=== PATIENT | female | born 1975 | race Hispanic/Latino ===

== ENCOUNTER → 2023-03-03 | Outpatient (CLI) | payer OTHER | END | disposition home or self-care (01) | LOC: RAH 08:00 | PROVIDERS: ATTEND Internal Medicine | DX: K76.0 Fatty (change of) liver, not elsewhere classified (principal); R10.9 Unspecified abdominal pain; E66.3 Overweight; R16.0 Hepatomegaly, not elsewhere classified; Z90.49 Acquired absence of other specified parts of digestive tract | CPT/HCPCS: 76700 ==

== ENCOUNTER 2024-03-02 17:53 | Emergency (ER) | payer OTHER ==
[~2024-03-02] VITALS: Ht 152.4 cm; Wt 68.0 kg
--- NOTE | 2024-03-02 18:01 | ERN ---
ED Note History of Present Illness Stated Complaint: TOE PAIN Chief Complaint: Toe Pain/Injury Time Seen by MD: 17:55 Dictation: PATIENT IS A 48-YEAR-OLD DIABETIC FEMALE HERE WITH MILD TENDERNESS AND ERYTHEMA TO HER LEFT 1ST AND 2ND TOES ONSET SEVERAL DAYS PRIOR TO ARRIVAL. SHE STATES SHE HAS BEEN WEARING SHOES AT WORK AND FOUND OUT TWO DAYS AGO THAT SHE HAD A SMALL RUBBER BALL IN THE SHOE AND HAD NOT NOTICED IT UNTIL TWO DAYS AGO. NO FEVER NO CHILLS NO NAUSEA VOMITING CURRENT BLOOD SUGAR IS 144 ON HER CONTINUOUS MONITOR READING. HAS NOT BEEN TO SEE HER PRIMARY CARE DOCTOR. BLISTERS NOTED TO THE DORSUM OF THE LEFT 2ND TOE. GRANULATED Allergies: Coded Allergies: No Known Allergies (Unverified Allergy, Unknown, 03/02/24) Home Meds Active Scripts Ibuprofen (Ibuprofen 800 mg Tab) 800 Mg Tab, 800 MG PO Q8H PRN for fever or pain, #30 TAB 0 Refills Prov:AMISHA ABRAMS NP 03/02/24 Clindamycin HCl (Clindamycin HCl) 300 Mg Capsule, 1 CAP PO QID for 10 Days, #40 CAP 0 Refills Prov:AMISHA ABRAMS NP 03/02/24 Past Medical History Past Medical History: Diabetes-Type II PSYCH History: no pertinent psych hx History: Not Applicable RN Note Reviewed/Agreed w/PFSH: Yes Review of System Dictation CONSTITUTIONAL: NEGATIVE EXCEPT FOR HPI HEAD/FACE: NEGATIVE EXCEPT FOR HPI EENT: NEGATIVE EXCEPT FOR HPI RESPIRATORY: NEGATIVE EXCEPT FOR HPI GASTROINTESTINAL/ABDOMINAL: NEGATIVE EXCEPT FOR HPI GENITOURINARY: NEGATIVE EXCEPT FOR HPI MUSCULOSKELETAL: NEGATIVE EXCEPT FOR HPI LEFT LEFT 1ST AND 2ND TOE ERYTHEMA TENDERNESS INTEGUMENTARY: NEGATIVE EXCEPT FOR HPI NEUROLOGICAL/PSYCH: NEGATIVE EXCEPT FOR HPI HEMATOLOGIC/LYMPHATIC: NEGATIVE EXCEPT FOR HPI ALL SYSTEMS NEGATIVE, EXCEPT NOTED ABOVE. 13 POINT REVIEW OF SYSTEMS ASSESSED AND ALL NEGATIVE EXCEPT FOR ABOVE. Initial Vital Sign VS Vital Signs Date Time Temp Pulse Resp B/P (MAP) Pulse Ox O2 Delivery O2 Flow Rate FiO2 03/02/24 17:54 97.9 79 16 128/81 98 Room Air 0 03/02/24 18:30 21 Physical Exam Dictation VITAL SIGNS REVIEWED GENERAL APPEARANCE: ALERT, ORIENTED X 3, MILD ACUTE DISTRESS, WELL DEVELOPED, NOURISHED. HEAD AND FACE: NON-TRAUMATIC. EYES: PERRL, PINK CONJUNCTIVAS, EYELID NO TRAUMA, ANTERIOR CHAMBER WITH ARCUS SENILIS. EARS: PINNAS INTACT AND NO SIGNS OF TRAUMA OR ERYTHEMA EAR CANALS CLEAR AND NO DISCHARGE TM NO ERYTHEMA NOSE: NO DISCHARGE, NO BLEEDING. OROPHARYNX: MOUTH NORMAL, TONGUE PINK, PHARYNX CLEAR,NO ERYTHEMA, TONSILS NO EXUDATES, NO ABSCESSES NOTED, MUCOUS MEMBRANE MOIST NECK: SUPPLE, NON-TENDER, NO THYROMEGALY, NO MASSES, NO JVD, NO BRUITS BREAST:DEFERRED CHEST:NO TENDERNESS, NO CREPITUS, NO PARADOXICAL MOVEMENT, NO RETRACTIONS LUNGS:CLEAR, WELL-VENTILATED, SYMMETRIC, NO RALES, NO WHEEZING, NO RHONCHI, NO STRIDOR, GOOD BREATH SOUNDS BILATERALLY HEART: REGULAR RATE, REGULAR RHYTHM, NO MURMUR, NO GALLOPS VASCULAR: NO PERIPHERAL EDEMA, ABDOMEN: SOFT, POSITIVE BOWEL SOUNDS, NONDISTENDED, NO GUARDING, NONTENDER, NO REBOUND, NO MASSES NO HEPATOMEGALY, NO SPLENOMEGALY, NO COWAN'S SIGN, NO HERNIAS. RECTAL: DEFERRED GENITAL: DEFERRED NEUROLOGICAL: NORMAL SPEECH, MOTOR FUNCTION INTACT, SENSORY FUNCTION INTACT MUSCULOSKELETAL: NECK NONTENDER, FULL RANGE OF MOTION, BACK NONTENDER, FULL RANGE OF MOTION, EXTREMITIES: NONTENDER, FULL RANGE OF MOTION SKIN: COLOR PINK, DRY, GRANULATING SECOND-STAGE ULCERS TO DORSUM LEFT TOE BILATERAL TOENAILS INTACT LYMPHATIC: DEFERRED Results (Laboratory/Radiology) Laboratory/Radiology Laboratory Tests Test 03/02/24 18:10 White Blood Count 8.2 K/uL (4.8-10.8) Red Blood Count 4.78 MIL/uL (4.00-5.50) Hemoglobin 13.1 g/dL (12.0-16.0) Hematocrit 39.3 % (36-48) Mean Corpuscular Volume 82.2 fL (79-99) Mean Corpuscular Hemoglobin 27.4 pg (27.0-33.0) Mean Corpuscular Hemoglobin Concent 33.3 g/dL (32.0-36.0) Red Cell Distribution Width 13.6 % (11.0-15.5) Platelet Count 230 K/uL (130-400) Mean Platelet Volume 9.9 fL (7.5-10.5) Immature Granulocyte % (Auto) 0.4 % (0-1) Neutrophils (%) (Auto) 53.6 % (40.0-77.0) Lymphocytes (%) (Auto) 35.8 % (21.0-51.0) Monocytes (%) (Auto) 7.5 % (3.0-13.0) Eosinophils (%) (Auto) 2.1 % (0.0-8.0) Basophils (%) (Auto) 0.6 % (0.0-5.0) Neutrophils # (Auto) 4.4 K/uL (1.8-7.7) Lymphocytes # (Auto) 3.0 K/uL (1.0-4.8) Monocytes # (Auto) 0.6 K/uL (0.1-1.0) Eosinophils # (Auto) 0.17 K/uL (0.00-0.70) Basophils # (Auto) 0.05 K/uL (0.00-0.20) Absolute Immature Granulocyte (auto 0.03 K/uL (0-1) Nucleated Red Blood Cells 0.0 % (0.0-0.19) Sodium Level 140 mmol/L (136-145) Potassium Level 3.7 mmol/L (3.5-5.1) Chloride Level 102 mmol/L (101-111) Carbon Dioxide Level 31 mmol/L (21-32) Blood Urea Nitrogen 22 mg/dL (7-18) H Creatinine 0.8 mg/dL (0.5-1.0) Glomerular Filtration Rate Calc 92 mL/min (>90) Random Glucose 148 mg/dL (70-105) H Total Calcium 9.5 mg/dL (8.5-10.1) LEFT FOOT RADIOGRAPHS - 3 VIEWS INDICATION: First and second toe erythema and tenderness COMPARISON: None FINDINGS: AP, lateral, and oblique views. No fracture or subluxation identified. No evidence for periosteal reaction, cortical erosive changes, or any abnormal subperiosteal bone resorption. Midfoot alignment is well maintained. No radiopaque foreign body noted. IMPRESSION: No evidence for osteolytic myelitis. M Labs Reviewed?: Yes ED Course ED Course Orders Procedure Category Date Status Time Acetaminophen 500mg PHA 03/02/24 Complete Tab (Tylenol 500mg T 18:00 Clindamycin 150mg Cap PHA 03/02/24 Complete (Cleocin 150mg Cap 18:00 Cbc With Differential LAB 03/02/24 Complete 17:57 Basic Metabolic Panel LAB 03/02/24 Complete 17:57 Foot Comp 3+Vws Lt RAD 03/02/24 Resulted 17:57 Current Medications Medications (Trade) Dose Ordered Sig/Sam Route PRN Reason Start Time Stop Time Status Last Admin Dose Admin Acetaminophen (TYLenol 500MG TAB) 1,000 mg ONCE ONCE PO 03/02/24 18:00 03/02/24 18:01 DC 03/02/24 18:15 Clindamycin HCl (Cleocin 150mg Cap) 600 mg ONCE ONCE PO 03/02/24 18:00 03/02/24 18:01 DC 03/02/24 18:14 Vital Signs Date Time Temp Pulse Resp B/P (MAP) Pulse Ox O2 Delivery O2 Flow Rate FiO2 03/02/24 18:30 98.1 75 16 126/60 99 Room Air* 0 21 03/02/24 17:54 97.9 79 16 128/81 98 Room Air 0 Medical Decision Making MDM MEDICAL DISCHARGE MAKING BASED ON X-RAY OF LEFT FOOT AND LABS TO RULE OUT INFECTION VERSUS OSTEOMYELITIS X-RAY NEGATIVE NO LEUKOCYTOSIS DISCHARGED HOME ON CLINDAMYCIN TOLD TO SEE HER DOCTOR TUESDAY DX & DISP Disposition: Discharge Departure Impression: Primary Impression: Cellulitis of second toe, left Additional Impression: Diabetes mellitus with hyperglycemia Condition: Stable Scripts Ibuprofen (Ibuprofen 800 mg Tab) 800 Mg Tab 800 MG PO Q8H PRN for fever or pain, #30 TAB 0 Refills Prov: AMISHA ABRAMS NP 03/02/24 Clindamycin HCl (Clindamycin HCl) 300 Mg Capsule 1 CAP PO QID for 10 Days, #40 CAP 0 Refills Prov: AMISHA ABRAMS NP 03/02/24 Additional Instructions: FOLLOW-UP WITH PRIMARY CARE PROVIDER IN 1 TO 2 DAYS. TAKE MEDICATIONS DIRECTED HERE IN THE EMERGENCY ROOM. OKAY TO CONTINUE HOME MEDICATIONS UNLESS OTHERWISE DISCUSSED DURING YOUR VISIT IN THE EMERGENCY ROOM TODAY. RETURN TO YOUR NEAREST EMERGENCY ROOM IF SYMPTOMS WORSEN OR IF THERE IS NO IMPROVEMENT. CALL 911 IF YOU NEED IMMEDIATE ASSISTANCE. TAKE TYLENOL OR MOTRIN OVER-THE-CO UNTER NEEDED AND IF NO CONTRAINDICATIONS ARE PRESENT. INCREASE ORAL HYDRATION. A WOUND CULTURE OR URINE CULTURE WAS ORDERED HERE IN THE EMERGENCY ROOM DEPARTMENT PLEASE FOLLOW-UP WITH PRIMARY CARE PROVIDER AND ADVISE THEM TO GET REPEAT PORTS FROM OUR FACILITY. IF YOU HAD ANY KAHLIL WRAP/SPLINTS THAT WERE APPLIED HERE, PLEASE DO NOT REMOVE THEM UNTIL YOU SEE YOUR PRIMARY CARE OR SPECIALTY. TAKE ANTIBIOTICS DIRECTED. NO TIGHT-FITTING SHOES AND NO WORK TUESDAY AND HAVE YOUR DOCTOR SEE YOU ON TUESDAY FOR RE-EVALUATION Referrals: LESLIE JEFFERSON MD (PCP) Time of Disposition: 19:38 ATTESTATION BY PHYSICIAN I PERFORMED THE SUBSTANTIVE PORTION OF THE VISIT. I HAVE REVIEWED AND PERSONALLY MADE AND APPROVED THE MANAGEMENT PLAN THAT IS DOCUMENTED IN THE NOTE BY MYSELF FOR THE A PP. I ACKNOWLEDGED FOR RESPONSIBILITY FOR THE PATIENT'S MANAGEMENT PLAN. I have reviewed the case, and I agree with, Diagnosis and Plan AMISHA ABRAMS NP Mar 02, 2024 18:01 SHANITA GLORIA MD Mar 03, 2024 18:08
[2024-03-02] MEDS: CLINDAMYCIN 150 MG CAP PO ONE (18:14)
[2024-03-02] MEDS: acetaMINOPHEN 500 MG TABLET PO ONE (18:15)
[2024-03-02 18:20] LABS: BASOPHILS # (AUTO) 0.05 K/uL (0.00-0.20); BASOPHILS % (AUTO) 0.6 % (0.0-5.0); EOSINOPHILS # (AUTO) 0.17 K/uL (0.00-0.70); EOSINOPHILS % (AUTO) 2.1 % (0.0-8.0); HEMATOCRIT 39.3 % (36-48); IMMATURE GRANULOCYTE ABSOLUTE 0.03 K/uL (0-1); LYMPHOCYTES % (AUTO) 35.8 % (21.0-51.0); MEAN CORPUSCULAR HEMOGLOBIN 27.4 pg (27.0-33.0); MEAN CORPUSCULAR HGB CONC 33.3 g/dL (32.0-36.0); MEAN CORPUSCULAR VOLUME 82.2 fL (79-99); MONOCYTES # (AUTO) 0.6 K/uL (0.1-1.0); MONOCYTES % (AUTO) 7.5 % (3.0-13.0); NEUTROPHILS # (AUTO) 4.4 K/uL (1.8-7.7); NEUTROPHILS % (AUTO) 53.6 % (40.0-77.0); PLATELET COUNT (AUTO) 230 K/uL (130-400); RED BLOOD CELL COUNT(AUTO) 4.78 MIL/uL (4.00-5.50); RED CELL DISTRIBUTION WIDTH 13.6 % (11.0-15.5); WHITE BLOOD COUNT (AUTO) 8.2 K/uL (4.8-10.8)
[2024-03-02 18:27] LABS: CREATININE 0.8 mg/dL (0.5-1.0); POTASSIUM 3.7 mmol/L (3.5-5.1)
[2024-03-02 18:30] VITALS: BP 126/60; PULSE 75; RESP 16; TEMP 98.1; O2SAT 99
--- NOTE | 2024-03-02 19:01 | HMCIMG ---
LEFT FOOT RADIOGRAPHS - 3 VIEWS INDICATION: First and second toe erythema and tenderness COMPARISON: None FINDINGS: AP, lateral, and oblique views. No fracture or subluxation identified. No evidence for periosteal reaction, cortical erosive changes, or any abnormal subperiosteal bone resorption. Midfoot alignment is well maintained. No radiopaque foreign body noted. IMPRESSION: No evidence for osteolytic myelitis.
[2024-03-02] MEDS ORDERED: CLIN-141 PO (19:39)
[2024-03-02] MEDS ORDERED: IBUP-2077 PO (19:39)
== END 2024-03-02 19:47 | disposition home or self-care (01) ==
LOC: EDH 17:53
DX: L03.032 Cellulitis of left toe (principal); E11.65 Type 2 diabetes mellitus with hyperglycemia; Z79.899 Other long term (current) drug therapy
CPT/HCPCS: 36415; 73630; 80048; 85025; 99284

== ENCOUNTER 2024-03-11 17:33 | Emergency (ER) | payer OTHER ==
[~2024-03-11] VITALS: Ht 152.4 cm; Wt 70.3 kg
[~2024-03-11 17:33] MED LIST: CLIN-141 PO; IBUP-2077 PO
--- NOTE | 2024-03-11 17:49 | ERN ---
General Chief Complaint: Toe Pain/Injury Stated Complaint: TOE PAIN Time Seen by MD: 17:37 Time Seen by Midlevel: 17:37 Source: patient History of Present Illness Initial Comments Patient is a 48-year-old female with a past medical history of type 2 diabetes presenting to the ER for a wound evaluation. Patient states that nine days ago she was seen in our emergency department after she sustained an abrasion to her left toe. She was started on clindamycin. Since the injury to her left toe she has developed a scab over the area with no surrounding redness. She specifically denies any fever, chills, or any other symptoms at this time. She reports today to the ER because a family member who is a nurse stateed that the told did not appear normal so patient wanted further evaluation. She does have a history of uncontrolled diabetes and states her sugars have been in the 300s at home. She has an appointment scheduled with her primary care doctor in two days. Allergies: Coded Allergies: Penicillins (Unverified Allergy, Unknown, HIVES, 03/11/24) Home Meds Active Scripts Ibuprofen (Ibuprofen 800 mg Tab) 800 Mg Tab, 800 MG PO Q8H PRN for fever or pain, #30 TAB 0 Refills Prov:AMISHA ABRAMS NP 03/02/24 Clindamycin HCl (Clindamycin HCl) 300 Mg Capsule, 1 CAP PO QID for 10 Days, #40 CAP 0 Refills Prov:AMISHA ABRAMS STABLE MANAGER 03/02/24 Past Medical History Past Medical History: Diabetes-Type II Medical History Other: NEUROPATHY Past Surgical History: Hysterectomy, Cholecystectomy, Surgical History Other: RT SHOULDER Female( History) History: Not Applicable ROS Dictation CONSTITUTIONAL: Negative except for HPI HEAD/FACE: Negative except for HPI EENT: Negative except for HPI RESPIRATORY: Negative except for HPI GASTROINTESTINAL/ABDOMINAL: Negative except for HPI GENITOURINARY: Negative except for HPI MUSCULOSKELETAL: Negative except for HPI INTEGUMENTARY: Negative except for HPI NEUROLOGICAL/PSYCH: Negative except for HPI HEMATOLOGIC/LYMPHATIC: Negative except for HPI All Systems Negative, Except as noted above. 13 point review of systems assessed and all negative except for above. Physical Exam Physical Exam Dictation PHYSICAL EXAM: GENERAL: alert,, awake oriented x 3 HEENT: EOMI, Sclera non icteric, moist mucosa NECK: Supple, no JVD, trachea midline LUNGS: Clear breath sounds bilaterally. No wheezes HEART: Regular rate and rhythm. Normal S1 and S2, without murmurs ABD: Abdomen soft, nontender. Bowel sounds present EXT: No clubbing or cyanosis, NEURO: Alert and oriented to person, follows commands MDM MDM: Patient is a 48-year-old female with a past medical history of type 2 diabetes presenting to the ER for a wound evaluation. Patient states that nine days ago she was seen in our emergency department after she sustained an abrasion to her left toe. She was started on clindamycin. Since the injury to her left toe she has developed a scab over the area with no surrounding redness. She specifically denies any fever, chills, or any other symptoms at this time. She reports today to the ER because a family member who is a nurse stateed that the told did not appear normal so patient wanted further evaluation. She does have a history of uncontrolled diabetes and states her sugars have been in the 300s at home. She has an appointment scheduled with her primary care doctor in two days. On physical examination there is a small abrasion to the left toe with an overlying scab. There was no surrounding erythema or induration. There was no abnormal discharge. Area appears to be healing well. Patient was advised to continue her antibiotics and keep her appointment with her primary care doctor in two days. If she was to develop any worsening erythema along with abnormal discharge she was advised to report to the ER for further evaluation. Had a lengthy discussion with the patient regarding her sugars at home. She was advised to keep her sugars controlled prefer really under 200 so this can promote healing. Differential diagnosis: Uncontrolled diabetes, wound evaluation, cellulitis, abscess There are no social concerns with this patient. Prescription drug management Prescriptions will include: None Medical management and examination interpretation discussions were had by me with other qualified healthcare professionals as indicated for the patient's care. ED Course Vital Signs Date Time Temp Pulse Resp B/P (MAP) Pulse Ox O2 Delivery O2 Flow Rate FiO2 03/11/24 17:56 98.8 78 20 131/56 98 Room Air* 0 21 03/11/24 17:37 97.5 92 18 138/81 98 Room Air 0 DX & DISP Disposition: Discharge Departure Impression: Primary Impression: Encounter for evaluation of wound Condition: Stable Additional Instructions: Your physical examination is reassuring. Your toe appears to be improving when compared to the initial injury. There are no signs of infection. There is no redness surrounding the previously open wound. There is a scab with no abnormal discharge. You were given clindamycin nine days ago. You will need to control your sugars at home and preferably keep them under 200. You will need to keep your appointment with your primary care doctor and follow up in two days as scheduled. If you develop any worsening pain along with swelling or abnormal discharge you will need to return to the ER for further evaluation. Referrals: LESLIE JEFFERSON MD (PCP) Time of Disposition: 17:47 I have reviewed the case, and I agree with, Diagnosis and Plan I performed the substantive portion of the visit. I have reviewed and personally made and approve the management plan that is documented in the note by myself or the JUAN A. I acknowledge for responsibility for the patient's management plan. JAMILA FERRO Mar 11, 2024 17:49
[2024-03-11 17:56] VITALS: BP 131/56; PULSE 78; RESP 20; TEMP 98.8; O2SAT 98
== END 2024-03-11 17:59 | disposition home or self-care (01) ==
LOC: EDH 17:33
DX: S90.415A Abrasion, left lesser toe(s), initial encounter (principal); E11.9 Type 2 diabetes mellitus without complications; Z88.0 Allergy status to penicillin; Z90.49 Acquired absence of other specified parts of digestive tract; Z90.710 Acquired absence of both cervix and uterus; X58.XXXA Exposure to other specified factors, initial encounter; Y93.89 Activity, other specified; Y92.89 Other specified places as the place of occurrence of the external cause; Y99.8 Other external cause status
CPT/HCPCS: 99281

== ENCOUNTER → 2024-11-16 | Outpatient (CLI) | payer OTHER ==
[~2024-11-16] MED LIST changes: -CLIN-141 PO; +GEMF600T89 PO; -IBUP-2077 PO; +METF-910 PO
--- NOTE | 2024-11-20 19:39 | HMCIMG ---
EXAMINATION: COMPLETE TRANSABDOMINAL ULTRASOUND OF PELVIS. CLINICAL HISTORY: Pelvic and perineal pain. COMPARISON: CT of the abdomen and pelvis with contrast dated 04/25/2024. TECHNIQUE: Multiple real-time grayscale images of the pelvis were obtained with transabdominal transducer. FINDINGS: The uterus is not visualized, Post hysterectomy status. Both the ovaries are obscured by overlying bowel gas. There is no free fluid in the pelvis. IMPRESSION: Post hysterectomy status. No significant abnormality. /[place]
== END | disposition home or self-care (01) ==
LOC: RAH 10:25
PROVIDERS: ATTEND Nurse Practitioner Family
DX: R10.2 Pelvic and perineal pain (principal); Z90.710 Acquired absence of both cervix and uterus
CPT/HCPCS: 76856